=== PATIENT | male | born 1980 | race African-American/Black ===

== ENCOUNTER 2022-11-20 13:02 | Emergency (ER) | payer OTHER, SELFPAY ==
--- NOTE | ~2022-11-20 | CT_ITS ---
EXAMINATION: CT abdomen pelvis w con DATE: 11/20/2022 17:13 INDICATION: nonlocalized abdominal exam TECHNIQUE: Computed tomography (CT) of the abdomen and pelvis was performed with 100 mL Omnipaque-350 intravenous contrast. Automated exposure control and iterative reconstruction technique were employe d. The dose-length product was 427.49 mGy-cm. COMPARISON: None. FINDINGS: Lower thorax: Unremarkable Liver: Hepatic steatosis. Biliary/Gallbladder: Gallbladder is normal. No bile duct dilation. Pancreas: No mass or duct dilation. Spleen: Normal. Adrenals: Extensive stranding surrounding the right adrenal gland which is poorly visualized. The lef t adrenal gland is normal. Kidneys: 1.5 cm laceration in the anterior cortex of the right upper renal pole, extending to the hil um. 4.8 x 8.4 x 11.9 cm isodense perinephric fluid collection. Left renal hypodensities too small to characterize but most likely represent cysts. No suspicious mass, stone, or hydronephrosis. GI tract: No small or large bowel dilation. Appendix not confidently visualized. Mesentery/Peritoneum: Moderate mesenteric stranding/fluid in perihepatic and perisplenic spaces, exte nding down the right paracolic gutter and dependent central abdominal peritoneal space into the lino cral space and deep pelvis. Retroperitoneum: No mass, hematoma, or fluid. Pelvis: Pelvic organs are within normal limits. Soft Tissues: Soft tissues and body wall unremarkable. Bones: No acute osseous finding. IMPRESSION: 1. Grade 3 or 4 right renal laceration. Consider CT urography to exclude collecting system injury. 2. 11.9 cm anterior right perinephric hematoma. 3. Right adrenal hematoma. 4. Small-moderate volume hemoperitoneum. 5. No active extravasation. Results reported telephonically to Dr. Rodriguez by Dr. Medel at 5:25 PM on 11/20/2022. Reviewed, dictated and finalized at location K. IMPRESSION: 1. Grade 3 or 4 right renal laceration. Consider CT urography to exclude collec ting system injury. 2. 11.9 cm anterior right perinephric hematoma. 3. Right adrenal hematoma. 4. Small-moderate volume hemoperitoneum. 5. No active extravasation. Results reported telephonically to Dr. Rodriguez by Dr. Medel at 5:25 PM on 11/20.
[2022-11-20 13:25] VITALS: BP 153/89; PULSE 105; RESP 16; TEMP 36.8; O2SAT 100
[2022-11-20 13:50] LABS: Basophils Absolute Auto 0.1 K/mm3 (0.0-0.1); Basophils Percent Auto 0.3 % (0.2-1.2); Hematocrit 30.5 % (42.0-52.0); Hemoglobin 11.3 g/dL (14.0-18.0); Immature Granulocyte Absolute 0.13 K/mm3 (0.00-0.031); Immature Granulocyte Percent A 0.6 % (0-0.5); Lymphocytes Absolute Auto 1.17 K/mm3 (0.9-3.2); Lymphocytes Percent Auto 5.6 % (18.3-44.2); Mean Corpuscular Volume 78.2 fl (80-100); Mean Platelet Volume 10.2 fl (7.4-10.4); Monocytes Absolute Auto 2.1 K/mm3 (0.1-0.6); Monocytes Percent Auto 9.8 % (2.6-8.5); Neutrophils Absolute Auto 17.6 K/mm3 (1.3-6.7); Neutrophils Percent Auto 83.7 % (45.5-73.1); Nucleated Red Blood Cells Absolute Auto 0.1 K/mm3 (0.0-0.012); Nucleated Red Blood Cells Perc 0.2 % (0.0-0.2); Platelet Count Result 166 k/mm3 (150-375); Red Cell Distribution Width 13.1 % (11.5-14.5); White Blood Count 21.1 K/mm3 (4.5-10.0)
[2022-11-20 14:05] LABS: Ethanol < 10 mg/dL (<10)
[2022-11-20 14:28] LABS: Alanine Aminotransferase 67 U/L (6-50); Alkaline Phosphatase 56 U/L (38-126); Anion Gap 10 mmol/L (8-16); Aspartate Amino Transferase 101 U/L (17-59); Bilirubin,Total 1.6 mg/dL (0.2-1.3); Blood Urea Nitrogen 19 mg/dL (9-20); Carbon Dioxide 34 mmol/L (22-30); Chloride 88 mmol/L (98-107); Estimated CRCL calculation 82 ml/min; Estimated Glomerular Filt Rate > 60; Glucose 176 mg/dL (65-110); Lipase 589 U/L (23-300); Sodium 132 mmol/L (137-145)
[2022-11-20 14:35] LABS: Thyroid Stimulating Hormone 0.501 uIU/mL (0.465-4.680)
[2022-11-20] MEDS: SODIUM CHLORIDE 0.9% IV 1,000 ML 999 ML IV CONT (16:39)
[2022-11-20] MEDS: MORPHINE SULFATE (*CRX) 4 MG/ML INJ IV PUSH (16:40)
[2022-11-20] MEDS: ONDANSETRON INJ 4 MG/2 ML VIAL IV PUSH (16:40)
[2022-11-20 16:58] LABS: Amphetamine Screen Urine Negative (Negative); Barbiturate Screen Urine Negative (Negative); Benzodiazepines Screen Urine Negative (Negative); Cannabinoid Screen Urine Negative (Negative); Cocaine Screen Urine Negative (Negative); Methadone Screen Urine Negative (Negative); Opiate Screen Urine Negative (Negative); Phencyclidine Screen Urine Negative (Negative)
[2022-11-20 17:02] LABS: Appearance Urine Cloudy (Clear); Bacteria Urine None Seen /hpf; Bilirubin Urine Negative (Negative); Blood Urine 2+ (Negative); Color Urine Dark Yellow (Yellow); Glucose Urine UA 2+ mg/dL (Negative); Ketones Urine Trace mg/dL (Negative); Leukocyte Esterase Ur Trace LEU/UL (Negative); Need Manual Microscopic Reviewed; Nitrate Urine Negative (Negative); Protein Urine 2+ mg/dL (Negative); Specific Grav Ur 1.034 (1.001-1.035); Squamous Epithelial Cell Urine Occasional /hpf (Few); WBC Urine 0-5 /hpf
[2022-11-20 17:04] LABS: Add Urine Microscopic? YES
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
--- NOTE | 2022-11-20 18:02 | PC.NURSE ---
ALS transfer to [facility] ER [facility] - No Answer [facility] - Declined [facility] - Declined [facility] - Accepted ETA 1848 Trip #[id number]
--- NOTE | 2022-11-20 19:03 | PC.NURSE ---
190 dr winslow changed from ALS to BLS BLS [facility] ETA 1944 Trip # [id number]
[2022-11-20 19:17] VITALS: BP 168/95; PULSE 93; RESP 21; TEMP 36.8; O2SAT 99
[2022-11-20 19:50] VITALS: BP 176/86; PULSE 97; RESP 20; TEMP 36.9; O2SAT 97
== END 2022-11-20 20:57 | disposition short-term general hospital (02) ==
PROVIDERS: Emergency Provider Emergency Medicine
DX: S37.051A Moderate laceration of right kidney, initial encounter (principal); S37.812A Contusion of adrenal gland, initial encounter; S37.091A Other injury of right kidney, initial encounter; W18.39XA Other fall on same level, initial encounter
CPT/HCPCS: 36415; 74177; 80053; 80307; 81001; 83690; 84443; 85025; 96361; 96374; 96375; 99285; J2270; J2405; J7030; Q9967